=== PATIENT | female | born 1975 | race Caucasian/White ===

== ENCOUNTER 2018-07-17 16:25 | Inpatient (IN) | payer OTHER ==
[2018-07-17] MEDS ORDERED: Heparin DRIP 25,000 UNITS(*) 25,000 UNITS/500 ML BAG IVPB ONE (16:47)
--- NOTE | 2018-07-17 16:51 | ED ---
HPI Chest Pain - HPI Summary HPI Summary: Pt is a 43 y/o F presenting to the ED with a chief complaint of chest pain onset months ago. She states she went to [facility] today because she was sick and tired of dealing with it. She states the chest pain radiates to her shoulder blades and down her L arm, and that her fingers are numb in her L hand. Exertion makes the chest pain worse. She also notes recent medication non- compliance, d/t not being able to get to the pharmacy, or not being able to afford it. She denies abd pain, LE edema, and hx of CA or stress test. - History of Current Complaint Chief Complaint: EDChestPainROMI Time Seen by Provider: 07/17/18 16:29 Hx Obtained From: Patient Onset/Duration: Started Weeks Ago, Still Present Timing: Constant, Lasting Weeks Initial Severity: Moderate Current Severity: Mild Pain Intensity: 2 Pain Scale Used: 0-10 Numeric Chest Pain Location: Left Anterior Chest Pain Radiates: Yes Chest Pain Radiates To:: Back, Arm Aggravating Factor(s): Exertion Alleviating Factor(s): Rest Associated Signs and Symptoms: Positive: Chest Pain, Numbness, Tingling, Back Pain. Negative: Abdominal Pain, Calf Pain/Swelling - Allergy/Home Medications Allergies/Adverse Reactions: Allergies Allergy/AdvReac Type Severity Reaction Status Date / Time No Known Allergies Allergy Abdominal Verified 07/17/18 17:06 Pain Home Medications: Home Medications Chlorthalidone TAB* [Hygroton TAB*] 25 mg PO BID 07/17/18 [History Confirmed ] Ibuprofen TAB* [Motrin TAB* 800 MG] 800 mg PO TID PRN 07/17/18 [History Confirmed 07/17/18] LORazepam TAB(*) [Ativan 0.5 MG TAB (*)] 0.5 mg PO TID PRN 07/17/18 [History Confirmed 07/17/18] PMH/Surg Hx/FS Hx/Imm Hx Previously Healthy: Yes Cardiovascular History: Reports: Hx Hypertension Respiratory History: Reports: Hx Chronic Obstructive Pulmonary Disease (COPD) Psychiatric History: Reports: Hx Community Mental Health Tx Denies: Hx Eating Disorder, Hx Suicide Attempt, Hx of Violent Episodes Against Others - Surgical History Surgery Procedure, Year, and Place: tubal ligation 1999 Infectious Disease History: No Infectious Disease History: Denies: Traveled Outside the [place] in Last 30 Days - Family History Known Family History: Negative: Respiratory Disease - Social History Alcohol Use: Daily Hx Substance Use: No Substance Use Type: Reports: None Hx Tobacco Use: Yes Smoking Status (MU): Heavy Every Day Tobacco Smoker Amount Used/How Often: PPD Length of Time of Smoking/Using Tobacco: 20 years Have You Smoked in the Last Year: Yes Review of Systems Positive: Chest Pain Negative: Abdominal Pain Positive: Myalgia - back pain. Negative: Edema Positive: Paresthesia, Numbness All Other Systems Reviewed And Are Negative: Yes Physical Exam - Summary Physical Exam Summary: Appearance: Well appearing, no pain distress Skin: warm, dry, reflects adequate perfusion Head/face: normal Eyes: EOMI, HAO ENT: normal Neck: supple, non-tender Respiratory: CTA, breath sounds present Cardiovascular: RRR, pulses symmetrical Abdomen: non-tender, soft Musculoskeletal: normal, strength/ROM intact Neuro: normal, sensory motor intact, A&Ox3 Triage Information Reviewed: Yes Vital Signs On Initial Exam: Initial Vitals Temp Pulse Resp BP Pulse Ox 98.5 F 73 16 163/107 100 07/17/18 16:29 07/17/18 16:29 07/17/18 16:29 07/17/18 16:29 07/17/18 16:29 Vital Signs Reviewed: Yes Diagnostics - Vital Signs Vital Signs Temp Pulse Resp BP Pulse Ox 07/17/18 16:29 98.5 F 73 16 163/107 100 - Laboratory Lab Statement: Any lab studies that have been ordered have been reviewed, and results considered in the medical decision making process. - EKG 1635 Cardiac Rate: NL - 71bpm EKG Rhythm: Sinus Rhythm ST Segment: Non-Specific Ectopy: None Summary of EKG Findings: EKG at 1635 shows NSR at 71bpm with ST elevation in leads I-III. Chest Pain Course/Dx - Course Course Of Treatment: Pt is a 43 y/o F presenting to the ED with a chief complaint of chest pain onset months ago. She states the chest pain radiates to her shoulder blades and down her L arm, and that her fingers are numb in her L hand. Exertion makes the chest pain worse. She denies abd pain, LE edema, and hx of CA or stress test. She also notes recent medication non-compliance. The pt's physical exam is normal. EKG at 1635 shows NSR at 71bpm with ST elevation in leads I-III. As of 1654, Dr. Beltran came down to evaluate the pt. As of 1702, the pt will be admitted to Dr. London with dx of acute coronary syndrome. - Chest Pain Differential Diagnosis/HQI/PQRI: Acute CA, ACS, Angina, CHF, Chest Wall - Diagnoses Provider Diagnoses: Acute coronary syndrome - Critical Care Time Critical Care Time: 30-74 min Discharge - Sign-Out/Discharge Documenting (check all that apply): Patient Departure - Discharge Plan Condition: Stable Disposition: ADMITTED TO [facility] - Billing Disposition and Condition Condition: STABLE Disposition: Admitted to [facility] - Attestation Statements Document Initiated by Scribe: Yes Documenting Scribe: Ginger Nicholson Provider For Whom Scribe is Documenting (Include Credential): Hever Marin MD. Scribe Attestation: IGinger, mjed for Hever Marin MD. on 07/17/18 at 1740. Scribe Documentation Reviewed: Yes Provider Attestation: The documentation as recorded by the erasmoibeGinger accurately reflects the service I personally performed and the decisions made by me, Hever Marin MD. Status of Scribe Document: Viewed Consult Consult: 1654 - Dr. Beltran has come to evaluate the patient. 1702 - I spoke with Dr. London who will be admitting the pt to [facility] with a dx of acute coronary syndrome.
[2018-07-17] MEDS ORDERED: nitroGLYCERIN DRIP* 25,000 MCG/250 ML BTL IV ONE (16:59)
[2018-07-17] MEDS ORDERED: Heparin DRIP 25,000 UNITS(*) 25,000 UNITS/500 ML BAG IV SCH ×2 (17:00→19:30)
[2018-07-17] MEDS ORDERED: Al Hydrox/Mg Hydrox/Simet LIQ* 30 ML UDC PO PRN (17:37)
[2018-07-17] MEDS ORDERED: Magnesium Hydroxide LIQ* 30 ML UDC PO PRN (17:37)
[2018-07-17] MEDS ORDERED: Morphine 4 MG/ML VIAL (1 ml) 4 MG/ML VIAL IV PRN (17:37)
[2018-07-17] MEDS ORDERED: Ondansetron INJ* 2 MG/ML VIAL IV PRN (17:37)
[2018-07-17] MEDS ORDERED: Acetaminophen TAB* 325 MG PO PRN (17:37)
[2018-07-17] MEDS ORDERED: LORazepam TAB(*) 0.5 MG PO PRN (17:42)
[2018-07-17 17:45] LABS: ABS Basophils 0.1 10^3/ul (0-0.2); ABS Eosinophils 0.2 10^3/ul (0-0.6); ABS Monocytes 0.5 10^3/ul (0-0.8); ABS Neutrophils 5.6 10^3/ul (1.5-7.7); Eosinophil % 1.9 %; Hematocrit 44 % (35-47); Hemoglobin 14.4 g/dL (12.0-16.0); Lymphocyte % 31.7 %; Mean Corpuscular HGB Conc 33 g/dL (31-36); Mean Corpuscular Hemoglobin 27 pg (27-31); Mean Corpuscular Volume 82 fL (80-97); Mean Platelet Volume 6.9 fL (7.4-10.4); Nucleated Red Blood Cells % 0.2; Platelet Count 387 10^3/uL (150-450); Red Blood Count 5.34 10^6 /uL (3.70-4.87); Red Cell Distribution Width 16 % (10.5-15); White Blood Count 9.4 10^3/uL (3.5-10.8)
[2018-07-17] MEDS ORDERED: Heparin DRIP 25,000 UNITS(*) 25,000 UNITS/500 ML BAG IV ONE (18:00)
[2018-07-17] MEDS ORDERED: nitroGLYCERIN DRIP* 25,000 MCG/250 ML BTL IV SCH (18:00)
[2018-07-17 18:02] LABS: Blood Urea Nitrogen 9 mg/dL (6-24); EGFR African American 106.5 (>60)
[2018-07-17 18:07] LABS: Troponin I 0.06 ng/mL (<0.04)
[2018-07-17] MEDS ORDERED: LORazepam TAB(*) 1 MG PO ONE (18:11)
[2018-07-17] MEDS: Metoprolol Tartrate TAB* 25 MG PO SCH (20:06)
[2018-07-17] MEDS: Nicotine* 4MG (FRUIT FLAVOR) GUM PO PRN (20:06)
--- NOTE | 2018-07-17 20:18 | HP ---
CC: Dr. Cunningham* HISTORY AND PHYSICAL: DATE OF ADMISSION: 07/17/18 PRIMARY CARE PROVIDER: None. CHIEF COMPLAINT: Chest pain. HISTORY OF PRESENT ILLNESS: Aubrie Juarez is a 43-year-old female with history of anxiety and hypertension, who presented to the hospital at [place] complaining of chest pain. The chest pain had been ongoing for the past 2 months, at least since April 2018, when she was diagnosed with bronchitis. She complains of chest pain in the left upper chest radiating to her left shoulder with tingling in her left arm. The patient is rather upset during my evaluation , complains of feeling anxious and stress and states that her pain occurs whenever she is stressed and she does not remember if it ever occurred with exercise. She told me that when she lies down or she tries to calm down and deep breathes, the pain gets better. The pain never woke her up from sleep. She has been having daily chest pains for the past 2 or 3 months. She is unable to tell me how long they last because she is too busy with problems of her daily life to notice it. Currently, the pain is at 5/10 in intensity. She denies any shortness of breath associated with the pain. When she was evaluated at [facility], the patient had an abnormal EKG and her troponin was 0.08. She was transferred to our emergency department for evaluation. She initially was seen by the interventionalist, Dr. Cunningham, who evaluated the patient and recommended treatment with aspirin and no Plavix, nitroglycerin drip and heparin drip. The patient is going to be reevaluated by Cardiology in the morning. PAST MEDICAL HISTORY: 1. History of hypertension. 2. History of anxiety. 3. History of psoriasis. PAST SURGICAL HISTORY: Status post tubal ligation in the past. HOME MEDICATIONS: Include: 1. Ibuprofen on a p.r.n. basis. 2. Lorazepam 0.5 mg 3 times a day p.r.n. 3. Chlorthalidone 25 mg b.i.d. 4. Lisinopril 10 mg daily. FAMILY HISTORY: Positive for mother with history of cervical cancer who is and father who is alive with history of CHF and diabetes. 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 The patient smokes a pack per day and she has been doing so ever since she turned 17. She occasionally smokes marijuana. Denies IV drug use or other drug use. She drinks two 12-ounce Kulers every other day or so. She is single and her surrogate, she names her son Geoff Juarez, phone number [phone]. REVIEW OF SYSTEMS: The patient complains of anxiety due to problems with her living situation. She has tried to get a job. She also has other problems that she is not willing to disclose during my evaluation. She denies any problems with exercise intolerance. The pain has been ongoing for the past 2 or 3 months as mentioned above. Once again, the patient could not give me any aggravating factors, but she noted that when she calms down or lies down and does deep breathing exercises, the pain eventually goes away. Please note that the patient is a very vague historian in regards to her chest pains. All the remaining 12 systems were reviewed with the patient and were otherwise negative. PHYSICAL EXAMINATION GENERAL: The patient is a pleasant 43-year-old female, who is in no acute distress. Alert, awake, and oriented x3. VITAL SIGNS: Blood pressure of 159/108, heart rate of 92 and regular, respiratory rate 18, oxygen saturation 97% on room air, temperature of 98.5. HEENT: Head: Atraumatic, normocephalic. Eyes: Pupils are equal, reactive to light and accommodation. Oropharynx is clear. Mucosa moist. NECK: Supple. No JVD. No bruits bilaterally. RESPIRATORY: Clear to auscultation bilaterally. CARDIOVASCULAR: Regular rate and rhythm. No murmur. ABDOMEN: Soft, nontender. Bowel sounds are present in all 4 quadrants. EXTREMITIES: There is no edema. Pulses are +2 bilaterally. No clubbing or cyanosis. NEUROLOGIC: Speech is clear. Cranial nerves II through XII are grossly intact. Motor strength is 5/5 bilaterally. PSYCHIATRIC: The patient is anxious and intermittently tearful during my evaluation. SKIN: On evaluation of the skin, the patient has psoriatic plaques noted on bilateral elbows and scattered on her bilateral upper and lower extremities with no significant cellulitis or other areas of concern. DIAGNOSTIC STUDIES/LAB DATA: White blood cell count of 9.4, hemoglobin of 14.4 , hematocrit of 44, and platelets of 387. Sodium at [facility] was noted to be at 141, potassium of 3.9, chloride of 104, carbon dioxide 28, anion gap of 9, calcium of 8.7. Total protein of 7.3 , albumin of 3.5. Bilirubin 0.3, AST 14, ALT 17, alkaline phosphatase of 71. CPK of 58, CK-MB was noted to be 4.2 at [place]. Troponin at [place] was 0.08. Repeat troponin here is 0.06. Creatinine was 1.0, glucose of 98, BUN 8. The patient's EKGs were noted to have ST elevation with a downsloping segment in leads V2, V3, negative T-wave in lead V4, biphasic T-wave in leads V2 and V3 , downsloping ST elevation in leads III and aVF of 1 to just below 1 mm, and negative T-wave in lead aVR and aVL. Comparing to EKG from March 2018, the patient's T- waves were positive in leads V2, V3 and V4, which are now negative. The patient had an unremarkable chest x-ray reported at [facility]. ASSESSMENT AND PLAN: The patient has EKG changes, ongoing chest pain and indeterminate troponin consistent with unstable angina or [id number] myocardial infarction. Cardiology is already involved. The patient is going to be placed in the intensive care unit on heparin drip and nitroglycerin drip. It appears that anxiety is worsening the patient's symptoms and she is going to continue to be treated with Ativan on a p.r.n. basis. I will also place the patient on beta-ginny, an aspirin a day, and Lipitor. Fasting lipid profile is going to be obtained in the morning. We will also obtain transthoracic echocardiogram in the morning and I will place the patient n.p.o. in case she needed to go to cardiac catheterization in the morning also. For DVT prophylaxis, the patient is already on heparin drip. The patient's code status is full. Her surrogate is her son as mentioned above. TIME SPENT: Approximately 65 minutes was spent on admission of this patient, more than half that time was spent [id number] with the patient during the interview and physical exam. [id number]/[facility] #: [id number] KEON
[2018-07-17 20:33] LABS: ABS Basophils 0.1 10^3/ul (0-0.2); ABS Eosinophils 0.2 10^3/ul (0-0.6); ABS Monocytes 0.5 10^3/ul (0-0.8); ABS Neutrophils 5.6 10^3/ul (1.5-7.7); Eosinophil % 1.9 %; Hematocrit 40 % (35-47); Hemoglobin 13.3 g/dL (12.0-16.0); Lymphocyte % 32.3 %; Mean Corpuscular HGB Conc 33 g/dL (31-36); Mean Corpuscular Hemoglobin 27 pg (27-31); Mean Corpuscular Volume 81 fL (80-97); Mean Platelet Volume 6.9 fL (7.4-10.4); Platelet Count 349 10^3/uL (150-450); Red Blood Count 4.96 10^6 /uL (3.70-4.87); Red Cell Distribution Width 16 % (10.5-15); White Blood Count 9.4 10^3/uL (3.5-10.8)
[2018-07-17 20:49] LABS: Blood Urea Nitrogen 7 mg/dL (6-24); EGFR African American 113.7 (>60)
[2018-07-17 20:51] LABS: Troponin I 0.05 ng/mL (<0.04)
[2018-07-17] MEDS ORDERED: Atorvastatin* 80 MG TAB PO ONE (21:00)
[2018-07-17] MEDS: LORazepam TAB(*) 1 MG PO PRN (23:46)
[2018-07-18 00:27] LABS: Troponin I 0.06 ng/mL (<0.04)
[2018-07-18] MEDS ORDERED: Heparin VIAL(*) 5000 UNITS/ML VIAL (FIVE THOUSAND) IV PRN (00:59)
[2018-07-18] MEDS: Nicotine* 4MG (FRUIT FLAVOR) GUM PO PRN ×3 (01:07→15:12)
[2018-07-18 05:49] LABS: ABS Basophils 0.1 10^3/ul (0-0.2); ABS Eosinophils 0.3 10^3/ul (0-0.6); ABS Lymphocytes 3.1 10^3/ul (1.0-4.8); ABS Monocytes 0.5 10^3/ul (0-0.8); ABS Neutrophils 6.1 10^3/ul (1.5-7.7); Eosinophil % 2.7 %; Hematocrit 40 % (35-47); Hemoglobin 13.5 g/dL (12.0-16.0); Lymphocyte % 30.9 %; Mean Corpuscular HGB Conc 34 g/dL (31-36); Mean Corpuscular Hemoglobin 27 pg (27-31); Mean Corpuscular Volume 81 fL (80-97); Mean Platelet Volume 6.9 fL (7.4-10.4); Platelet Count 351 10^3/uL (150-450); Red Blood Count 4.93 10^6 /uL (3.70-4.87); Red Cell Distribution Width 15 % (10.5-15)
[2018-07-18 06:09] LABS: Anion Gap 5 mmol/L (2-11); BUN/Creatinine Ratio 14.3 (8-20); Blood Urea Nitrogen 10 mg/dL (6-24); CO2 Carbon Dioxide 25 mmol/L (22-32); Calcium 8.4 mg/dL (8.6-10.3); Chloride 108 mmol/L (101-111); Cholesterol 163 mg/dL; EGFR Non-African American 90.9 (>60); Glucose 101 mg/dL (70-100); HDL Cholesterol 49.2 mg/dL; LDL Cholesterol 72 mg/dL; Potassium 3.6 mmol/L (3.5-5.0); Sodium 138 mmol/L (135-145); Triglycerides 208 mg/dL
[2018-07-18 06:11] LABS: Troponin I 0.05 ng/mL (<0.04)
[2018-07-18] MEDS: LORazepam TAB(*) 1 MG PO PRN (07:58)
[2018-07-18] MEDS: Metoprolol Tartrate TAB* 25 MG PO SCH (07:58)
[2018-07-18] MEDS ORDERED: NS 0.9% 1000 ML** 1,000 ML IV SCH (08:15)
[2018-07-18] MEDS ORDERED: Aspirin 81 mg CHEW TAB* 81 MG TAB.CHEW PO SCH (09:00)
--- NOTE | 2018-07-18 09:18 | ECHO ---
*[facility]* [place] [address] Fax #: [phone] Transthoracic Echocardiogram Patient: Ann, Height: 64 in / Aubrie Murphy 162.6 cm : 1975 Weight: 144.7 lb / Study Date: 07/18/2018 65.8 kg Age: 43 BP: 107 / 66 Gender: F BMI/BSA: 24.9 kg/m^2 HR: 57 bpm / 1.71 m^2 *Field Ring Assembler: * Lexy Tristan [facility] *Referring Physician: * Ashish Renner MD ; Briana Oliver *Reading Physician: * Ashish Renner MD Indications: Chest Pain, unspecified. History: Risk factors: Current tobacco use. Hypertension. Conclusions Summary: 1. Left ventricle: Systolic function is normal. The estimated ejection fraction is 55-60%. Doppler parameters are consistent with abnormal left ventricular relaxation (grade 1 diastolic dysfunction). 2. Mitral valve: There is mild regurgitation. Study data: Transthoracic echocardiogram. Procedure: Transthoracic echocardiography was performed. Image quality was good. Complete 2D, spectral Doppler, and color flow Doppler. Location: ICU Patient status: Inpatient. Patient room number: ICU-6. No prior study is available for comparison. Rhythm: Bradycardia. Findings Left ventricle: The cavity size is normal. There is mild concentric hypertrophy. Systolic function is normal. The estimated ejection fraction is 55-60%. Wall motion is normal; there are no regional wall motion abnormalities. Doppler parameters are consistent with abnormal left ventricular relaxation (grade 1 diastolic dysfunction). Right ventricle: The cavity size is normal. Systolic function is normal. Left atrium: The atrium is normal in size. Right atrium: The atrium is normal in size. Mitral valve: The annulus is mildly calcified. The leaflets are mildly thickened. There is no evidence of stenosis. There is mild regurgitation. Aortic valve: The valve is trileaflet. The leaflets are mildly thickened. There is no evidence of stenosis. There is trivial regurgitation. Tricuspid valve: The leaflets are normal thickness. There is no evidence of stenosis. There is physiologic regurgitation. Pulmonic valve: The leaflets are normal thickness. There is no evidence of stenosis. There is no significant regurgitation. Aorta: Ascending aorta: The ascending aorta is appears normal. Aortic arch: The aortic arch is appears normal. The aortic root is not dilated. Pericardium: A prominent pericardial fat pad is present. There is no pericardial effusion. Pulmonary arteries: The main pulmonary artery is normal-sized. Systemic veins: Inferior vena cava: The vessel is normal in size. The respirophasic diameter changes are in the normal range (>= 50%). Measurements Left ventricle Value Ref Aortic valve Value Ref SHWETA, LAX 4.2 cm 3.8 - 5.2 Tyson diam, ED 1.8 cm ---- ESD, LAX 2.6 cm 2.2 - 3.5 Peak v, S 1.19 m/sec ---- FS, LAX 38 % - 45 VTI, S 24.5 cm ---- PW, ED, LAX (H) 1.1 cm 0.6 - 0.9 Mean grad, S 2.0 mm Hg ---- FS 38 % - 45 Peak grad, S 6.0 mm Hg ---- PW, ED (H) 1.1 cm 0.6 - 0.9 LVOT/AV, VTI ratio 0.86 ---- E', lat tyson, TDI (L) 6.7 cm/sec >=10.0 E/e', lat tyson, 12 Mitral valve Value Ref TDI Peak E 0.8 m/sec ---- E', med tyson, TDI (L) 6.3 cm/sec >=7.0 Peak A 0.54 m/sec -- -- E/e', med tyson, 13 Decel time 246 ms ---- TDI Peak grad, D 2.6 mm Hg ---- E', avg, TDI 6.5 cm/sec Peak E/A ratio 1.5 ---- E/e', avg, TDI 12 <=14 Pulmonic valve Value Ref LVOT Value Ref Peak v, S 0.76 m/sec ---- Peak saira, S 1.01 m/sec Peak grad, S 2.0 mm Hg ---- VTI, S 21.0 cm Mean grad, S 2 mm Hg Aortic root Value Ref Root diam 2.8 cm <3.9 Ventricular septum Value Ref IVS, ED (H) 1.2 cm 0.6 - 0.9 Ascending aorta Value Ref AAo AP diam, S 3.1 cm ---- Right ventricle Value Ref SHWETA, LAX 3.5 cm Aortic arch Value Ref SHWETA minor ax, A4C (H) 3.6 cm 1.9 - 3.5 Arch diam 2.3 cm ---- mid Decending aorta Value Ref Left atrium Value Ref Omer peak saira 0.65 m/sec ---- AP dim, ES 3.80 cm 2.70 - 3.80 Inferior vena cava Value Ref ML dim, A4C 4.0 cm Diam 1.5 cm ---- SI dim, A4C 5.1 cm Vol/bsa, ES, 1-p 23 ml/m^2 11 - 40 A4C Vol/bsa, ES, A/L 27 ml/m^2 16 - 34 Right atrium Value Ref SI dim, ES 4.5 cm 3.4 - 5.3 ML dim, ES, A4C 3.6 cm 2.6 - 4.4 SI dim, ES, A4C 4.5 cm 3.4 - 5.3 Estimated RAP 3 mm Hg Legend: (L) and (H) ilsa values outside specified reference range. Prepared and electronically signed by Ashish Renner MD 07/18/2018 09:18
[2018-07-18] MEDS ORDERED: Lorazepam PYXIS KEY PRN (10:08)
[2018-07-18] MEDS: LORazepam INJ* 2 MG/ML 1 ML VIAL IV PUSH PRN ×2 (10:31→15:12)
[2018-07-18 11:27] LABS: ALT 7 U/L (7-52); AST 11 U/L (13-39); Albumin 3.3 g/dL (3.2-5.2); Albumin/Globulin Ratio 1.4 (1-3); Alkaline Phosphatase 49 U/L (34-104); C Reactive Protein < 1.00 mg/L (<8.01); Globulin 2.4 g/dL (2-4); Total Protein 5.7 g/dL (6.4-8.9)
[2018-07-18 12:35] LABS: Erythrocyte Sed Rate 0 mm/Hr (0-19)
--- NOTE | 2018-07-18 14:00 | CONS ---
CC: Key Green NP; Dr. Cunningham. CARDIOLOGY CONSULTATION: DATE OF CONSULT: 07/18/18 PATIENT OF: Key Green NP, and Dr. Cunningham. REASON FOR CONSULT: Chest pain. HISTORY OF PRESENT ILLNESS: This is a 43-year-old female with risk factors of hypertension and tobacco use who presented with several months of chest pain and EKG changes. She admits to anxiety and is a somewhat circuitous historian. She reports that she thinks that 3 to 4 months ago she started getting chest and left arm pain. She has difficulty describing the circumstances but she says it seems to be associated with emotional stress or sometimes with exertion. She says it usually improves with resting, either sitting or lying down for 5 minutes. She says sometimes it is associated with shortness of breath and sweatiness. She says that she can walk about 10 minutes to her friend's house, sometimes she has to stop fpc because of shortness of breath and chest discomfort and it resolves. Other times she can walk to whole way. She also works at a [employer] and has to walk sometimes, at times she uses the cart to avoid exertion. She apparently saw a doctor in March for symptoms. There is an EKG from March which was fairly unremarkable and she subsequently was treated for bronchitis. At that time she did have a cough and some wheezing. She says she has continued to have the pain and because of frustration of the symptoms she went to the emergency room yesterday at [place]. She was noted to have new EKG changes compared to the previous and elevated troponin of 0.08 was transferred. She was given nitro and developed a headache, but this pain was relieved over night, she has no pain this morning. She denies orthopnea, peripheral edema, fevers, chills, sweats, hematemesis, hematochezia, or diarrhea. She does smoke a pack per day and is not interested in quitting at this point. PAST MEDICAL HISTORY: Includes hypertension, tobacco use, psoriasis, and anxiety. PAST SURGICAL HISTORY: She has a history of spontaneous vaginal deliveries x2, tubal ligation. No other surgeries. MEDICATIONS: At home include: 1. Ibuprofen. 2. Lorazepam 0.5 mg 3 times a day as needed. 3. Chlorthalidone 25 mg b.i.d. 4. Lisinopril 10 mg a day. Her medications here include: 1. Aspirin 81 mg a day. 2. Lipitor 80 mg last night and 40 mg a day to start. 3. IV heparin. 4. Lorazepam 0.5 mg IV q.4 p.r.n. 5. Milk of magnesia p.r.n. 6. Metoprolol 25 mg q.12. 7. Morphine 1 g IV q.4 p.r.n. 8. Nicotine gum 4 mg q.2. 9. Normal saline 100 cc. ALLERGIES: She denies any allergies. SOCIAL HISTORY: She drinks a fruit Kuler drink 22 ounces 12% alcohol, about once a week. She just smokes marijuana a couple of times in the summer and a rare pot brownie. She is , has 2 children, she lives alone. 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 REVIEW OF SYSTEMS: Review of systems x10 was negative except as above. PHYSICAL EXAM: She is a well-developed, well-nourished female, in no apparent distress. Pulse of 62, blood pressure of 125/92. Atraumatic and normocephalic , extraocular movements intact, sclerae anicteric. No significant JVD. Carotids 2+ without bruits. No cervical adenopathy or thyromegaly. Chest with decreased breath sounds, prolonged expiratory phase and kyphosis. Abdomen: Bowel sounds present, nontender. No hepatosplenomegaly. Femoral pulses intact without bruits. Distal pulses intact, no edema. Motor strength 5/5 bilaterally. Deep tendon reflexes 2/4, alert and oriented x3. DIAGNOSTIC STUDIES/LAB DATA: EKG from today revealed sinus rhythm with T-wave inversions in I and aVL and V2 through V6, somewhat biphasic T-waves in V2, V3. These were new compared to March and the EKG looked similar to 07/17/18. There was minimal ST elevation in III and aVF about 0.5 mm. The T-wave inversions were somewhat more pronounced compared to yesterday on the 5:30 EKG. Labs include a fairly unremarkable CBC. Sodium 138; potassium of 3.6; troponin of 0.06, 0.05, 0.06, 0.05; cholesterol of 163; calcium mildly low at 8.4; BUN of 10; creatinine of 0.7. IMPRESSION: My impression is that Ms. Juarez has chest pain of unclear etiology, new EKG changes raising possibility of coronary insufficiency. She also has a history of tobacco use, hypertension, and respiratory infection back in March which raises the possibility of viral cardiomyopathy, pericarditis, or hypertensive heart disease. Of note, her echo did not reveal any significant wall-motion abnormalities, did have mild LVH. I discussed the options for further evaluation and treatment including possible cardiac catheterization or noninvasive testing. I presented the case to our interventionalist Dr. Cunningham. Also explained to her the need for improvement in her lifestyle and compliance with her medication regimen including but not limited to stopping smoking and taking her antiplatelet agents especially if a stent is placed. The risk of thrombosis, MO, and were discussed. After discussing the case with Dr. Cunningham he would like an assessment for the degree of ischemia at rest to help decide between medical management and invasive management. I discussed this with the patient, she is agreeable to proceed. We will arrange for a nuclear stress test understanding the risk of provoking ischemia. She is to add atorvastatin to her regimen 40 mg a day. She is to continue on the beta ginny. She is to continue on aspirin. She was advised the importance of discontinuing tobacco use. We will continue to treat her anxiety as per the hospitalist. We will continue with a beta-ginny and consider adding calcium-channel blockers and nitrates if she has recurrent pain, although nitrates may not be a sustainable intervention given her history of headaches yesterday. [id number]/[facility] #: [id number] MTDD
--- NOTE | 2018-07-18 15:22 | PN ---
Progress Note - Progress Note Date of Service: 07/18/18 Note: I spoke w pt and her son at length this afternoon. She refused a lexascan today , is stressed , hungry and craving smoking. Her chest pain Hx is still vague and atypical, therefore impossible to quantitate her anginal episodes, if any. Her DARELL score is low (2), we discussed that she is a poor candidate for DAPT given her anxiety, at times inability to get meds, and apparant challanges to being responsible for her own health. Her EKG is abnormal, but not absolute indication for cath. We discussed an approach with imaging tomorrow for risk stratification, son will bring her shoes in am. She is agreeable. If scan is high risk she'll have to decide whether she wants to proceed to cath /PCI,, recognizing the critical importance of med compliance with DAPT, and the risk of stent thrombosis/[place]/ with non-compliance. She said she "doesn't want a stent", preferring med rx. I explained that a high risk study could be indication for cath/PCI with above caveats, but personally I am not yet convinced she will be med compliant. She also wants more Ativan- I'll pass that on to Hospitalist service.
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
[2018-07-18] MEDS ORDERED: Atorvastatin* 40 MG TAB PO SCH (17:00)
[2018-07-18 18:24] VITALS: BP 129/81
[2018-07-18] MEDS ORDERED: Metoprolol Tartrate TAB* 25 MG PO ONE (21:00)
[2018-07-19] MEDS ORDERED: Metoprolol Tartrate TAB* 25 MG PO SCH (21:00)
== END 2018-07-18 19:15 | disposition left against medical advice (07) | DRG 203 ==
LOC: ED 16:25 → ICU 17:37 → MEDTELE 07-18 18:24
PROVIDERS: ADMIT Internal Medicine; ATTEND Internal Medicine
DX: R07.9 Chest pain, unspecified (principal); F10.99 Alcohol use, unspecified with unspecified alcohol-induced disorder; I10 Essential (primary) hypertension; J44.9 Chronic obstructive pulmonary disease, unspecified; F17.210 Nicotine dependence, cigarettes, uncomplicated; F32.9 Major depressive disorder, single episode, unspecified; Y90.9 Presence of alcohol in blood, level not specified; L40.9 Psoriasis, unspecified; Z80.49 Family history of malignant neoplasm of other genital organs; Z98.51 Tubal ligation status; Z72.89 Other problems related to lifestyle; Z82.49 Family history of ischemic heart disease and other diseases of the circulatory system; Z83.3 Family history of diabetes mellitus; Z79.01 Long term (current) use of anticoagulants; Z79.82 Long term (current) use of aspirin
CPT/HCPCS: 36415; 80053; 80061; 82565; 84484; 84520; 85025; 85652; 85730; 86140; 86703; 87641; 93005; 93306; 99285; A9270-GY; J1644; J2060; J2270

== ENCOUNTER 2018-07-18 20:29 | Observation (INO) | payer OTHER ==
--- NOTE | 2018-07-18 21:57 | ED ---
HPI Chest Pain - HPI Summary HPI Summary: The patient is a 43 y/o F presenting to [facility] with a chief complaint of diffuse CP tonight. She reports that she was admitted to [facility] yesterday, and she left AMA tonight because none of the testing she was supposed to get done today had been done. She also notes that after leaving, she went outside for a cigarette before coming back inside because her son made her come back to get the testing done. She states she is willing to stay and get the workup she needs since she is still having the aching pain rated 6/10 in severity. She additionally c/o numbness of the LUE, and she is currently anxious. Hx of HTN and COPD. Current heavy everyday smoker. - History of Current Complaint Chief Complaint: EDChestPainROMI Time Seen by Provider: 07/18/18 21:07 Hx Obtained From: Patient Onset/Duration: Started Hours Ago, Still Present Timing: Lasting Hours Initial Severity: Moderate Current Severity: Moderate Pain Intensity: 6 Pain Scale Used: 0-10 Numeric Chest Pain Location: Diffuse Chest Pain Radiates: No Character: Dull/Aching Aggravating Factor(s): Nothing Alleviating Factor(s): Nothing Associated Signs and Symptoms: Positive: Chest Pain, Numbness - in LUE - Allergy/Home Medications Allergies/Adverse Reactions: Allergies Allergy/AdvReac Type Severity Reaction Status Date / Time No Known Allergies Allergy Abdominal Verified 07/18/18 20:48 Pain PMH/Surg Hx/FS Hx/Imm Hx Endocrine/Hematology History: Denies: Hx Diabetes Cardiovascular History: Reports: Hx Hypertension Respiratory History: Reports: Hx Chronic Obstructive Pulmonary Disease (COPD) Sensory History: Denies: Hx Contacts or Glasses, Hx Hearing Aid Opthamlomology History: Denies: Hx Contacts or Glasses Psychiatric History: Reports: Hx Anxiety, Hx Depression, Hx Community Mental Health Tx Denies: Hx Eating Disorder, Hx Suicide Attempt, Hx of Violent Episodes Against Others - Cancer History Cancer Type, Location and Year: 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 - Surgical History Surgery Procedure, Year, and Place: tubal ligation 1999 Infectious Disease History: No Infectious Disease History: Denies: Traveled Outside the [place] in Last 30 Days - Family History Known Family History: Positive: Hypertension Negative: Respiratory Disease - Social History Alcohol Use: Rare Hx Substance Use: No Substance Use Type: Reports: None Hx Tobacco Use: Yes Smoking Status (MU): Heavy Every Day Tobacco Smoker Do You Chew or Dip Tobacco: No Amount Used/How Often: PPD Length of Time of Smoking/Using Tobacco: 20 years Have You Smoked in the Last Year: Yes Review of Systems Positive: Chest Pain Positive: Numbness - LUE Positive: Anxious All Other Systems Reviewed And Are Negative: Yes Physical Exam - Summary Physical Exam Summary: Appearance: Well appearing, no pain distress Skin: warm, dry, reflects adequate perfusion Head/face: normal Eyes: EOMI, HAO ENT: normal Neck: supple, non-tender Respiratory: CTA, breath sounds present Cardiovascular: RRR, pulses symmetrical Abdomen: non-tender, soft Musculoskeletal: normal, strength/ROM intact Neuro: normal, sensory motor intact, A&Ox3 Triage Information Reviewed: Yes Vital Signs On Initial Exam: Initial Vitals Temp Pulse Resp BP Pulse Ox 97.7 F 86 16 147/94 96 07/18/18 20:38 07/18/18 20:38 07/18/18 20:38 07/18/18 20:38 07/18/18 20:38 Vital Signs Reviewed: Yes Diagnostics - Vital Signs Vital Signs Temp Pulse Resp BP Pulse Ox 07/18/18 21:09 79 99 07/18/18 20:38 97.7 F 86 16 147/94 96 - Laboratory Lab Statement: Any lab studies that have been ordered have been reviewed, and results considered in the medical decision making process. - EKG 2028 Cardiac Rate: NL - BPM EKG Rhythm: Sinus Rhythm EKG Comparison: No Significant Change - Similar to previous EKG taken on . Summary of EKG Findings: No ST elevations. Chest Pain Course/Dx - Course Assessment/Plan: The patient is a 43 y/o F presenting to [facility] with a chief complaint of CP and left arm numbness after leaving AM from [facility] for the same symptoms tonight. Upon physical exam, the patient exhibits no acute abnormalities. Blood work obtained. Troponin of 0.04. EKG is normal. I spoke with Dr. Carson, hospitalist at 0, and he accepts the patient for admission given that the patient is compliant with admission orders after previous stay. She is diagnosed with acute coronary syndrome. She agrees with and understands the need for admission at this time. - Chest Pain Differential Diagnosis/HQI/PQRI: Acute GA, ACS - Diagnoses Provider Diagnoses: Acute coronary syndrome - Provider Notifications Discussed Care Of Patient With: Aren Carson - hospitalist Time Discussed With Above Provider: 21:40 Instructed by Provider To: Other - I spoke with Dr. Carson concerning the patient' s case. He agrees to admit the patient given that she is willing to cooperate after previous admission. Discharge - Sign-Out/Discharge Documenting (check all that apply): Patient Departure - Patient is accepted for admission to [facility] by Dr. Carson. Patient Received Moderate/Deep Sedation with Procedure: No - Discharge Plan Condition: Stable Disposition: ADMITTED TO [facility] - Billing Disposition and Condition Condition: STABLE Disposition: Admitted to [facility] - Attestation Statements Document Initiated by Deze: Yes Documenting Scribe: Nitza Broussard Provider For Whom Geovanna is Documenting (Include Credential): Dr. Hever Marin MD Scribe Attestation: Nitza Mason scribed for Dr. Hever Marin MD on 07/19/18 at 0002. Scribe Documentation Reviewed: Yes Provider Attestation: The documentation as recorded by the Nitza ackerman accurately reflects the service I personally performed and the decisions made by me, Dr. Hever Marin MD Status of Scribe Document: Viewed
[2018-07-18] MEDS ORDERED: Nicotine* 4MG (FRUIT FLAVOR) GUM PO PRN (22:14)
[2018-07-18 22:15] LABS: Troponin I 0.04 ng/mL (<0.04)
[2018-07-18] MEDS ORDERED: Diazepam TAB(*) 5 MG PO ONE (22:30)
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
[2018-07-18] MEDS ORDERED: Nicotine PATCH 21 MG/24 HR* PATCH TRANSDERM SCH (23:00)
[2018-07-18 23:05] LABS: HCG Pregnancy 0.62 mIU/mL
[2018-07-19] MEDS ORDERED: LORazepam TAB(*) 1 MG PO PRN (04:00)
[2018-07-19 06:32] LABS: ABS Eosinophils 0.2 10^3/ul (0-0.6); ABS Lymphocytes 2.3 10^3/ul (1.0-4.8); ABS Monocytes 0.5 10^3/ul (0-0.8); ABS Neutrophils 5.6 10^3/ul (1.5-7.7); Eosinophil % 2.3 %; Hematocrit 40 % (35-47); Hemoglobin 12.9 g/dL (12.0-16.0); Lymphocyte % 27.1 %; Mean Corpuscular HGB Conc 33 g/dL (31-36); Mean Corpuscular Hemoglobin 27 pg (27-31); Mean Corpuscular Volume 81 fL (80-97); Mean Platelet Volume 7.1 fL (7.4-10.4); Platelet Count 294 10^3/uL (150-450); Red Blood Count 4.87 10^6 /uL (3.70-4.87); Red Cell Distribution Width 15 % (10.5-15); White Blood Count 8.7 10^3/uL (3.5-10.8)
[2018-07-19 06:46] LABS: Activated Partial Thrombo Time 30.6 seconds (26.0-38.0); INR 0.85 (0.82-1.09)
[2018-07-19 06:54] LABS: BUN/Creatinine Ratio 12.5 (8-20); Calcium 8.5 mg/dL (8.6-10.3); EGFR African American 106.5 (>60); Potassium 3.8 mmol/L (3.5-5.0)
[2018-07-19 07:00] LABS: Urine Benzodiazepine Screen Presumptive Positive (None Detect); Urine Opiates Screen Presumptive Positive (None Detect)
[2018-07-19] MEDS ORDERED: Regadenoson* 0.4 MG/5 ML SYRINGE ONE (08:18)
[2018-07-19] MEDS ORDERED: Aminophylline IV* 25 MG/ML 10 ML VIAL ONE (08:18)
[2018-07-19] MEDS ORDERED: Lisinopril TAB* 10 MG PO SCH (09:00)
[2018-07-19] MEDS ORDERED: Aspirin EC TAB* 81 MG TAB.EC PO SCH (09:00)
[2018-07-19 13:27] LABS: Troponin I 0.05 ng/mL (<0.04)
[2018-07-19 14:46] VITALS: BP 136/99
[2018-07-19 15:39] LABS: Troponin I 0.04 ng/mL (<0.04)
[2018-07-19] MEDS ORDERED: Atorvastatin* 40 MG TAB PO SCH (17:00)
[2018-07-19] MEDS ORDERED: Nicotine Patch Removal NOTE PATCH OFF SCH (21:00)
--- NOTE | 2018-07-20 01:40 | DS ---
CC: BRUCE Rubio * DISCHARGE SUMMARY: DATE OF ADMISSION: 07/18/18 DATE OF DISCHARGE: 07/19/18 PRIMARY CARE PROVIDER: BRUCE Rubio Schuyler. ATTENDING PHYSICIAN: Dr. Briana Oliver* (dictated by Ramila Reyes NP.) PRIMARY DIAGNOSIS: Chest pain. SECONDARY DIAGNOSES: 1. Hypertension. 2. Anxiety. 3. Psoriasis. STUDIES WHILE IN THE HOSPITAL: EKG: Impression: Normal sinus rhythm. Downsloping Ts in V2 and V3; negative Ts in V2, V3, and V4. Nuclear med scan: Impression: Small area of reversible hypoperfusion in the distal anterior wall suggestive of an area of ischemia. Assessment: Low risk. DISCHARGE HOME MEDICATIONS: Continued Home Medications: 1. Ibuprofen on a p.r.n. basis. 2. Lorazepam 0.5 mg 3 times a day p.r.n. 3. Chlorthalidone 25 mg b.i.d. 4. Lisinopril 10 mg daily. Nolic Medications: 1. Metoprolol tartrate 12.5 mg p.o. b.i.d. 2. Lipitor 40 mg p.o. daily. 3. Aspirin 81 mg p.o. daily. HISTORY OF PRESENT ILLNESS/HOSPITAL COURSE: Mrs. Juarez is a 43-year-old female with a past medical history significant for hypertension, anxiety, psoriasis who presented to the emergency department on 06/18/18 after leaving against advice around 7:00 p.m. the same day. Please see history and physical dictated by Dr. Aren Carson for a complete summary of the events leading up to hospitalization, but in short the patient was admitted on 07/17/18 with chest pain, EKG suggesting ischemia, and mildly elevated troponins. She later left AMA. The patient then had a conversation with her son and returned to the emergency department for further cardiac testing. Given the patient's history and previous admitting diagnosis, the patient was admitted again for further evaluation and treatment. The patient was admitted to the telemetry floor. While on telemetry, the patient remained in sinus rhythm. On my assessment today, the patient denied chest pain. The patient reported left arm tingling. The patient's vital signs remained stable. The patient's troponins have remained stable with initial troponin being 0.04 and repeat troponins being 0.05 and then 0.04. In addition , the patient underwent a stress test with results as mentioned above. His stress test results were discussed with the on-call welding process specialist, Dr. Renner, who suspects the patient's left-sided chest pain and arm numbness/tingling is not related to cardiac etiology. He suspects that this could be radiculopathy from his cervical disk disease and he would recommend a neurosurgery followup. Even though he does not believe that the pain is cardiac in nature, given the results of the stress test, it is recommended that the patient be treated for CAD with medical management. The patient is stable for discharge home today. PHYSICAL EXAMINATION: Vital Signs: Temp 98.5, HR 81, RR 17, O2 saturation 99% on room air, BP 136/ 99. General: Mrs. Juarez is a 43-year-old female sitting in bed. Appears to be in no acute distress. Appears stated age. HEENT: EOMs intact. PERRLA. Oral mucosa is moist without lesions. Posterior oropharynx is clear. Neck: Supple. No lymphadenopathy. Cardiac: S1, S2 present. No murmurs, rubs, or gallops. Regular rate and rhythm. Respiratory: Lungs are clear to auscultation. Good aeration. No wheezes, rhonchi, or rubs. Abdomen: Soft and nontender. Bowel sounds normoactive. Extremities: No edema. No clubbing or cyanosis. Pedal pulses 2+ bilaterally. Musculoskeletal: No pain or deformities. Skin: Patient has psoriasis noted on bilateral posterior elbows. Remainder of skin is clean, dry, and intact. Neuro: Neuro exam is grossly intact. No focal deficits or weakness noted. DIAGNOSTIC STUDIES/LABORATORY DATA: WBC 8.7, hemoglobin 12.9, hematocrit 40, platelets 294. Sodium 138, potassium 3.8, chloride 108, carbon dioxide 25, BUN 9, creatinine 0.72. DISCHARGE PLAN/FOLLOWUP: 1. CAD: Given the patient's results of her stress test, she will be started on aspirin, statin, and beta ginny. The patient can continue her home medications. The patient has been educated on smoking cessation. The patient should follow up with Dr. Renner in 1 to 2 weeks. The patient was educated on signs and symptoms of new or worsening condition and when to return to the emergency department. The patient stated understanding. 2. Chest pain/left arm numbness and tingling: As mentioned above, we have a low suspicion that the patient's pain is cardiac in origin. I discussed the possibility of radiculopathy from cervical disk disease given the patient's pain is positional. The patient was provided with the number for neurosurgeon for further evaluation. 3. Hypertension: The patient should continue her lisinopril and chlorthalidone. 4. Anxiety: The patient should continue her lorazepam as needed. I would also recommend the primary care provider discuss an SSRI as this is the more appropriate treatment for long-term anxiety. The patient requested a refill on her lorazepam prior to discharge, but the [facility] site was consulted and the patient received 90 tabs on 07/06/18, which was a 30-day supply. The patient was not provided with a refill. 5. Psoriasis: The patient reports that she has seen multiple doctors for her psoriasis and nothing works. The patient may benefit from a referral to Dr. Hadley, rheumatology. 6. Followup: The patient should follow up with her primary care in 4 to 7 days. The patient should follow up with Dr. Renner in 1 to 2 weeks. The patient should follow up with neurosurgeon as needed. 7. Education: The patient was educated on signs and symptoms of new or worsening condition and when to return to the emergency department. The patient states understanding. TIME SPENT: Approximately 35 minutes were spent on this discharge, greater than half the time was spent [id number] with the patient and discussing discharge plans and instructions. This is a summarized report of a complex medical history and hospital stay. For further details, please see entire medical record. Plan: This plan was discussed with my attending, Dr. Oliver, who agrees with my plan of care. Reviewed by RAMILA REYES NP 07/23/18 1322 [id number] #: [id number] KEON
== END 2018-07-19 19:13 | disposition home or self-care (01) ==
LOC: ED 20:29 → INTOOBSV 22:12 → MEDTELE 22:12
PROVIDERS: ADMIT Internal Medicine; ATTEND Internal Medicine
DX: I25.10 Atherosclerotic heart disease of native coronary artery without angina pectoris (principal); R07.9 Chest pain, unspecified; I10 Essential (primary) hypertension; F41.9 Anxiety disorder, unspecified; L40.9 Psoriasis, unspecified; R20.0 Anesthesia of skin; R20.2 Paresthesia of skin; R74.8 Abnormal levels of other serum enzymes; F17.210 Nicotine dependence, cigarettes, uncomplicated; Z79.899 Other long term (current) drug therapy; Z79.82 Long term (current) use of aspirin; J44.9 Chronic obstructive pulmonary disease, unspecified; R94.31 Abnormal electrocardiogram [ECG] [EKG]
CPT/HCPCS: 36415; 78452; 80048; 80307; 84484; 84702; 85025; 85610; 85730; 93005; 93017; 99284; A9270-GY; A9502; G0378; J0280; J2785